=== PATIENT | female | born 1985 | race Caucasian/White ===

== ENCOUNTER 2017-09-17 18:21 | Emergency (ER) | payer SELFPAY ==
[~2017-09-17] VITALS: Ht 162.6 cm; Wt 63.5 kg
[2017-09-17 18:35] VITALS: BP 141/97; PULSE 86; RESP 18; TEMP 98.9; O2SAT 98
[2017-09-17] MEDS ORDERED: HYDR25TA5 PO (18:52)
[2017-09-17] MEDS ORDERED: METO50TA PO (18:52)
[2017-09-17 20:58] LABS: BILIRUBIN, URINE NEG (NEG); BLOOD, URINE MOD (NEG); GLUCOSE,URINE NEG (NEG); KETONE, URINE NEG (NEG); NITRITE,URINE NEG (NEG); PH, URINE 6.5 (5.0-8.5); URINE COLOR LIGHT-YELLOW (YELLW/STRAW); URINE LEUKOCYTE ESTERASE NEG (NEG)
[2017-09-17 20:58] LABS: AUTOMATED NEUTROPHIL # 3.2 TH/MM3 (1.8-7.7); BASOPHIL # 0.1 TH/MM3 (0-0.2); BASOPHIL % 1.1 % (0.0-2.0); EOSINOPHIL # 0.2 TH/MM3 (0-0.4); EOSINOPHIL % 2.5 % (0.0-4.0); HEMATOCRIT 41.1 % (35.0-46.0); HEMOGLOBIN 14.5 GM/DL (11.6-15.3); LYMPH % 39.6 % (9.0-44.0); LYMPHOCYTE # 2.5 TH/MM3 (1.0-4.8); MEAN CELL VOLUME 90.8 FL (80.0-100.0); MEAN CORPUSCULAR HGB CONC 35.2 % (32.0-36.0); MEAN PLATELET VOLUME 9.1 FL (7.0-11.0); MONO % 7.3 % (0.0-8.0); MONOCYTE # 0.5 TH/MM3 (0-0.9); NEUT % 49.5 % (16.0-70.0); PLATELET COUNT 261 TH/MM3 (150-450); RED BLOOD COUNT 4.53 MIL/MM3 (4.00-5.30); RED CELL DISTRIBUTION WIDTH 12.7 % (11.6-17.2); WHITE BLOOD COUNT 6.4 TH/MM3 (4.0-11.0)
[2017-09-17 21:09] LABS: ALT (GPT) 40 U/L (10-53)
[2017-09-17 21:14] LABS: ALKALINE PHOSPHATASE 111 U/L (45-117); TOTAL BILIRUBIN ADULT 0.4 MG/DL (0.2-1.0); TOTAL PROTEIN 7.2 GM/DL (6.4-8.2)
[2017-09-17 21:17] LABS: ALBUMIN 3.6 GM/DL (3.4-5.0); AST (GOT) 40 U/L (15-37); BICARBONATE 31.1 MEQ/L (21.0-32.0); BLOOD UREA NITROGEN 16 MG/DL (7-18); CALCIUM 8.2 MG/DL (8.5-10.1); CHLORIDE 100 MEQ/L (98-107); CREATININE 0.98 MG/DL (0.50-1.00); GLOMERULAR FILTRATION RATE 65 ML/MIN (>89); GLUCOSE,RANDOM 98 MG/DL (74-106); SODIUM (NA) 137 MEQ/L (136-145)
--- NOTE | 2017-09-17 21:21 | RADRPT ---
EXAM DATE/TIME: 09/17/2017 20:29 [place] COMPARISON: No previous studies available for comparison. INDICATIONS : Pelvic pain. MEDICAL HISTORY : Hypertension. Pelvic pain. Alcohol use. SURGICAL HISTORY : D&C. ENCOUNTER: Initial ACUITY: 1 day PAIN SCORE: 6/10 LOCATION: Bilateral pelvis MEASUREMENTS: UTERUS: 8.6 x 3.7 x 3.3 cm ENDOMETRIAL STRIPE: 4 mm RIGHT OVARY: 2.4 x 2.6 x 1.0 cm LEFT OVARY: n/a. cm FINDINGS: UTERUS: Small cystic lesions measuring up to 5 mm in the lower uterine segment might reflect nabothian cysts. No definite myometrial mass. RIGHT OVARY: Ovary contains no mass or significant cystic lesion. LEFT OVARY: Unable to visualize. MISCELLANEOUS: No free fluid. CONCLUSION: 1. Left ovary is not visualized. 2. Normal appearing right ovary. 3. Probable small nabothian cysts. Aries Cahu MD on September 17, 2017 at 21:17 Board Certified Radiologist. This report was verified electronically.
[2017-09-17] MEDS ORDERED: MEDR5TAB3 PO (21:25)
--- NOTE | 2017-09-17 21:26 | PD ---
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 She woke up with vaginal bleeding. She reports using multiple super max tampons every hour or so. She reports large clots of blood that she can feel passing. No similar prior episode has occurred. No headache dizziness palpitations or chest pain. No shortness of breath. No fever. No abdominal pelvic discomfort reported. Timing continuous. PFSH Past Medical History Hypertension: Yes Tetanus Vaccination: < 5 Years ?: Unknown LMP: 09/13/17 Social History Alcohol Use: Yes Tobacco Use: No Substance Use: No Allergies-Medications (Allergen,Severity, Reaction): Coded Allergies: No Known Allergies (Unverified , 09/17/17) Reported Meds & Prescriptions Reported Meds & Active Scripts Active Medroxyprogesterone Acetate 5 Mg Tab 5 Mg PO DAILY Start day 16 Reported Metoprolol Tartrate 50 Mg Tab 50 Mg PO DAILY Hydrochlorothiazide 25 Mg Tab 25 Mg PO DAILY Review of Systems Except as stated in HPI: all other systems reviewed are Neg General / Constitutional: No: Chills Physical Exam Narrative GENERAL: 32-year-old female pleasant well-nourished well-developed Vital Signs Date Time Temp Pulse Resp B/P (MAP) Pulse Ox O2 Delivery O2 Flow Rate FiO2 09/17/17 18:35 98.9 86 18 141/97 (112) 98 SKIN: Warm and dry. HEAD: Atraumatic. Normocephalic. EYES: Pupils equal and round. No scleral icterus. No injection or drainage. ENT: No nasal bleeding or discharge. Mucous membranes pink and moist. NECK: Trachea midline. No JVD. CARDIOVASCULAR: Regular rate and rhythm. RESPIRATORY: No accessory muscle use. Clear to auscultation. Breath sounds equal bilaterally. GASTROINTESTINAL: Abdomen soft, non-tender, nondistended. Hepatic and splenic margins not palpable. MUSCULOSKELETAL: Extremities without clubbing, cyanosis, or edema. No obvious deformities. NEUROLOGICAL: Awake and alert. No obvious cranial nerve deficits. Motor grossly within normal limits. Five out of 5 muscle strength in the arms and legs. Normal speech. PSYCHIATRIC: Appropriate mood and affect; insight and judgment normal. Data Data Last Documented VS Vital Signs Date Time Temp Pulse Resp B/P (MAP) Pulse Ox O2 Delivery O2 Flow Rate FiO2 09/17/17 18:35 98.9 86 18 141/97 (112) 98 Orders Orders Beta Hcg (Quant/Titer) (09/17/17 19:16) Complete Blood Count With Diff (09/17/17 19:16) Comprehensive Metabolic Panel (09/17/17 19:16) Urinalysis - C+S If Indicated (09/17/17 19:16) Iv Access Insert/Monitor (09/17/17 19:16) Ecg Monitoring (09/17/17 19:16) Us Pelvis Comp W Dop Transvag (09/17/17 ) Ed Discharge Order (09/17/17 21:26) Labs Laboratory Tests Test 09/17/17 20:32 09/17/17 20:35 White Blood Count 6.4 TH/MM3 Red Blood Count 4.53 MIL/MM3 Hemoglobin 14.5 GM/DL Hematocrit 41.1 % Mean Corpuscular Volume 90.8 FL Mean Corpuscular Hemoglobin 32.0 PG Mean Corpuscular Hemoglobin Concent 35.2 % Red Cell Distribution Width 12.7 % Platelet Count 261 TH/MM3 Mean Platelet Volume 9.1 FL Neutrophils (%) (Auto) 49.5 % Lymphocytes (%) (Auto) 39.6 % Monocytes (%) (Auto) 7.3 % Eosinophils (%) (Auto) 2.5 % Basophils (%) (Auto) 1.1 % Neutrophils # (Auto) 3.2 TH/MM3 Lymphocytes # (Auto) 2.5 TH/MM3 Monocytes # (Auto) 0.5 TH/MM3 Eosinophils # (Auto) 0.2 TH/MM3 Basophils # (Auto) 0.1 TH/MM3 CBC Comment DIFF FINAL Differential Comment Blood Urea Nitrogen 16 MG/DL Creatinine 0.98 MG/DL Random Glucose 98 MG/DL Total Protein 7.2 GM/DL Albumin 3.6 GM/DL Calcium Level 8.2 MG/DL Alkaline Phosphatase 111 U/L Aspartate Amino Transf (AST/SGOT) 40 U/L Alanine Aminotransferase (ALT/SGPT) 40 U/L Total Bilirubin 0.4 MG/DL Sodium Level 137 MEQ/L Potassium Level 4.0 MEQ/L Chloride Level 100 MEQ/L Carbon Dioxide Level 31.1 MEQ/L Anion Gap 6 MEQ/L Estimat Glomerular Filtration Rate 65 ML/MIN Human Chorionic Gonadotropin, Quant LESS THAN 1 MIU/ML Urine Color LIGHT-YELLOW Urine Turbidity CLEAR Urine pH 6.5 Urine Specific [place] 1.016 Urine Protein NEG mg/dL Urine Glucose (UA) NEG mg/dL Urine Ketones NEG mg/dL Urine Occult Blood MOD Urine Nitrite NEG Urine Bilirubin NEG Urine Urobilinogen LESS THAN 2.0 MG/DL Urine Leukocyte Esterase NEG Urine RBC 3 /hpf Urine WBC LESS THAN 1 /hpf Microscopic Urinalysis Comment CULT NOT INDICATED MDM Medical Decision Making Medical Screen Exam Complete: Yes Emergency Medical Condition: Yes Medical Record Reviewed: Yes Differential Diagnosis Anemia, uterine mass, UTI Narrative Course CBC & BMP Diagram 09/17/17 20:32 Total Protein 7.2, Albumin 3.6, Calcium Level 8.2 L, Alkaline Phosphatase 111, Aspartate Amino Transf (AST/SGOT) 40 H, Alanine Aminotransferase (ALT/SGPT) 40, Total Bilirubin 0.4 Urinalysis shows no UTI Vital Signs Date Time Temp Pulse Resp B/P (MAP) Pulse Ox O2 Delivery O2 Flow Rate FiO2 09/17/17 18:35 98.9 86 18 141/97 (112) 98 Patient is hemodynamically normal. The patient is resting comfortably and feels better, is alert and in no distress the time of reassessment, 9:35 PM. The patients results and examination findings were discussed. The repeat examination is unremarkable and benign. The history, exam, diagnostic testing, and current condition do not suggest any significant pathology to warrant further testing, continued ED treatment, admission, or surgical evaluation at this point. The vital signs have been stable. The patient does not have uncontrollable pain, intractable vomiting, or other significant symptoms. The patient's condition is stable and appropriate for discharge. The patient will pursue further outpatient evaluation with a primary care physician or other designated or consulting physician as indicated in the discharge instructions. The patient expressed understanding and was agreeable with this plan. Diagnosis Primary Impression: Vaginal bleeding Referrals: Charging Operator call for appointment Med/Other Pt SpecificInfo: Prescription(s) given Scripts Medroxyprogesterone Acetate (Medroxyprogesterone Acetate) 5 Mg Tab 5 MG PO DAILY for Uterine bleeding, #10 TAB 0 Refills Start day 16 Prov: John Pineda MD 5/20/18 Disposition: 01 DISCHARGE HOME Condition: Stable John Pineda MD September 17, 2017 21:26
== END 2017-09-17 22:13 | disposition home or self-care (01) ==
LOC: NEPD 18:21
DX: N93.9 Abnormal uterine and vaginal bleeding, unspecified (principal); I10 Essential (primary) hypertension
CPT/HCPCS: 76830; 76856; 80053; 81001; 84702; 85025; 93975; 99284

== ENCOUNTER 2017-09-21 11:25 | Emergency (ER) | payer SELFPAY ==
[~2017-09-21] VITALS: Ht 162.6 cm; Wt 66.0 kg
[~2017-09-21 11:25] MED LIST: HYDR25TA5 PO; MEDR5TAB3 PO; METO50TA PO
[2017-09-21 11:45] VITALS: BP 135/67; PULSE 82; RESP 22; TEMP 98.1; O2SAT 100
[2017-09-21 12:42] LABS: AUTOMATED NEUTROPHIL # 3.3 TH/MM3 (1.8-7.7); BASOPHIL # 0.1 TH/MM3 (0-0.2); BASOPHIL % 0.9 % (0.0-2.0); EOSINOPHIL # 0.1 TH/MM3 (0-0.4); EOSINOPHIL % 2.2 % (0.0-4.0); HEMATOCRIT 39.6 % (35.0-46.0); HEMOGLOBIN 13.8 GM/DL (11.6-15.3); LYMPH % 30.9 % (9.0-44.0); LYMPHOCYTE # 1.7 TH/MM3 (1.0-4.8); MEAN CELL VOLUME 91.4 FL (80.0-100.0); MEAN CORPUSCULAR HEMOGLOBIN 31.8 PG (27.0-34.0); MEAN CORPUSCULAR HGB CONC 34.8 % (32.0-36.0); MONO % 7.6 % (0.0-8.0); MONOCYTE # 0.4 TH/MM3 (0-0.9); NEUT % 58.4 % (16.0-70.0); PLATELET COUNT 230 TH/MM3 (150-450); RED BLOOD COUNT 4.33 MIL/MM3 (4.00-5.30); RED CELL DISTRIBUTION WIDTH 12.6 % (11.6-17.2); WHITE BLOOD COUNT 5.6 TH/MM3 (4.0-11.0)
[2017-09-21 12:47] LABS: BACTERIA, URINE OCC /hpf; BILIRUBIN, URINE NEG (NEG); BLOOD, URINE LARGE (NEG); GLUCOSE,URINE NEG (NEG); KETONE, URINE NEG (NEG); NITRITE,URINE NEG (NEG); SQUAMOUS EPITHELIAL CELL URINE 93 /hpf (0-5); URINE LEUKOCYTE ESTERASE NEG (NEG)
[2017-09-21 12:50] LABS: URINE COLOR LIGHT-RED (YELLW/STRAW)
[2017-09-21 13:03] LABS: ALKALINE PHOSPHATASE 84 U/L (45-117); TOTAL BILIRUBIN ADULT 0.2 MG/DL (0.2-1.0); TOTAL PROTEIN 7.3 GM/DL (6.4-8.2)
[2017-09-21 13:07] LABS: ALBUMIN 3.7 GM/DL (3.4-5.0); ALT (GPT) 41 U/L (10-53); AST (GOT) 30 U/L (15-37); BICARBONATE 31.9 MEQ/L (21.0-32.0); BLOOD UREA NITROGEN 14 MG/DL (7-18); CALCIUM 8.7 MG/DL (8.5-10.1); CHLORIDE 101 MEQ/L (98-107); CREATININE 0.92 MG/DL (0.50-1.00); GLOMERULAR FILTRATION RATE 70 ML/MIN (>89); GLUCOSE,RANDOM 94 MG/DL (74-106); SODIUM (NA) 141 MEQ/L (136-145)
--- NOTE | 2017-09-21 13:30 | PD ---
HPI Chief Complaint: Bleeding Time Seen by Provider: 13:21 Travel History International Travel<30 days: No Contact w/Intl Traveler<30days: No Traveled to known affect area: No History of Present Illness HPI Patient is a 32-year-old female presents emergency department for evaluation of continued vaginal bleeding. Patient was here 2 days ago for similar, she was started on medroxyprogesterone for her vaginal bleeding and she states that it is making her dizzy and not relieving her bleeding at all. She states she has also been passing large clots. States she had an ultrasound here 2 days ago which was negative, she is from out of town so has not followed up with an [facility] as of yet. No fevers no abdominal pain no nausea no vomiting. States symptoms are moderate, for the past week, constant, moderate. PFSH Past Medical History Cardiovascular Problems: Yes Hypertension: Yes Tetanus Vaccination: Unknown Influenza Vaccination: No ?: Not LMP: 09/14/17 Social History Alcohol Use: Yes Tobacco Use: No Substance Use: No Allergies-Medications (Allergen,Severity, Reaction): Coded Allergies: No Known Allergies (Unverified , 09/17/17) Reported Meds & Prescriptions Reported Meds & Active Scripts Active Medroxyprogesterone Acetate 5 Mg Tab 5 Mg PO DAILY Start day 16 Reported Metoprolol Tartrate 50 Mg Tab 50 Mg PO DAILY Hydrochlorothiazide 25 Mg Tab 25 Mg PO DAILY Review of Systems Except as stated in HPI: all other systems reviewed are Neg Physical Exam Narrative GENERAL: Well-developed well-nourished in no obvious distress peer SKIN: Focused skin assessment warm/dry. HEAD: Atraumatic. Normocephalic. EYES: Pupils equal and round. No scleral icterus. No injection or drainage. No conjunctival pallor ENT: No nasal bleeding or discharge. Mucous membranes pink and moist. NECK: Trachea midline. No JVD. CARDIOVASCULAR: Regular rate and rhythm. No murmur appreciated. RESPIRATORY: No accessory muscle use. Clear to auscultation. Breath sounds equal bilaterally. GASTROINTESTINAL: Abdomen soft, non-tender, nondistended. Hepatic and splenic margins not palpable. GENITOURINARY: Declined by patient MUSCULOSKELETAL: No obvious deformities. No clubbing. No cyanosis. No edema. NEUROLOGICAL: Awake and alert. No obvious cranial nerve deficits. Motor grossly within normal limits. Normal speech. PSYCHIATRIC: Appropriate mood and affect; insight and judgment normal. Data Data Last Documented VS Vital Signs Date Time Temp Pulse Resp B/P (MAP) Pulse Ox O2 Delivery O2 Flow Rate FiO2 09/21/17 14:01 80 16 120/55 (76) 100 09/21/17 13:15 Room Air 09/21/17 11:45 98.1 Orders Orders Complete Blood Count With Diff (09/21/17 11:47) Comprehensive Metabolic Panel (09/21/17 11:47) Urinalysis - C+S If Indicated (09/21/17 11:47) Ed Urine Pregnancytest Poc (09/21/17 11:47) Urine Culture (09/21/17 12:05) Ed Discharge Order (09/21/17 13:30) Labs Laboratory Tests Test 09/21/17 12:05 09/21/17 12:23 Urine Color LIGHT-RED Urine Turbidity CLOUDY Urine pH 7.0 Urine Specific [place] 1.023 Urine Protein 100 mg/dL Urine Glucose (UA) NEG mg/dL Urine Ketones NEG mg/dL Urine Occult Blood LARGE Urine Nitrite NEG Urine Bilirubin NEG Urine Urobilinogen LESS THAN 2.0 MG/DL Urine Leukocyte Esterase NEG Urine RBC /hpf Urine WBC 18 /hpf Urine Squamous Epithelial Cells 93 /hpf Urine Bacteria OCC /hpf Microscopic Urinalysis Comment CULTURE INDICATED White Blood Count 5.6 TH/MM3 Red Blood Count 4.33 MIL/MM3 Hemoglobin 13.8 GM/DL Hematocrit 39.6 % Mean Corpuscular Volume 91.4 FL Mean Corpuscular Hemoglobin 31.8 PG Mean Corpuscular Hemoglobin Concent 34.8 % Red Cell Distribution Width 12.6 % Platelet Count 230 TH/MM3 Mean Platelet Volume 9.0 FL Neutrophils (%) (Auto) 58.4 % Lymphocytes (%) (Auto) 30.9 % Monocytes (%) (Auto) 7.6 % Eosinophils (%) (Auto) 2.2 % Basophils (%) (Auto) 0.9 % Neutrophils # (Auto) 3.3 TH/MM3 Lymphocytes # (Auto) 1.7 TH/MM3 Monocytes # (Auto) 0.4 TH/MM3 Eosinophils # (Auto) 0.1 TH/MM3 Basophils # (Auto) 0.1 TH/MM3 CBC Comment DIFF FINAL Differential Comment Blood Urea Nitrogen 14 MG/DL Creatinine 0.92 MG/DL Random Glucose 94 MG/DL Total Protein 7.3 GM/DL Albumin 3.7 GM/DL Calcium Level 8.7 MG/DL Alkaline Phosphatase 84 U/L Aspartate Amino Transf (AST/SGOT) 30 U/L Alanine Aminotransferase (ALT/SGPT) 41 U/L Total Bilirubin 0.2 MG/DL Sodium Level 141 MEQ/L Potassium Level 4.4 MEQ/L Chloride Level 101 MEQ/L Carbon Dioxide Level 31.9 MEQ/L Anion Gap 8 MEQ/L Estimat Glomerular Filtration Rate 70 ML/MIN MDM Medical Decision Making Medical Screen Exam Complete: Yes Emergency Medical Condition: Yes Differential Diagnosis Dysfunctional uterine bleeding, , anemia. Narrative Course Patient room to the emergency department, labs are sent from triage as part of protocol, hemoglobin 13.8, test negative. Reviewed her ultrasound yesterday other than a poorly visualized left ovary it was negative. Patient has a benign abdominal exam, she was offered pelvic exam declined, at this point there is no indication further workup of this patient. Discussed that she does need to follow-up with an [facility] [employer] [facility], I did have a discussion with her mother who is in the room as well, she had a hysterectomy at similar age for similar symptoms. Discussed this may be in the patient's future as well. At this time I discussed that there is no indication further workup. Patient is stable for discharge Diagnosis Primary Impression: DUB (dysfunctional uterine bleeding) Referrals: Concepcion Ward MD Disposition: 01 DISCHARGE HOME Condition: Stable Hilario Beyer MD September 21, 2017 13:29
[2017-09-21 14:01] VITALS: BP 120/55
== END 2017-09-21 14:02 | disposition home or self-care (01) ==
LOC: NEPD 11:25
DX: N93.8 Other specified abnormal uterine and vaginal bleeding (principal); I10 Essential (primary) hypertension; Z79.899 Other long term (current) drug therapy
CPT/HCPCS: 80053; 81001; 84703; 85025; 87086; 99283